=== PATIENT | female | born 1970 | race Caucasian/White ===

== ENCOUNTER 2017-02-20 23:21 | Inpatient (IN) | payer BC, OTHER ==
[~2017-02-20] VITALS: Ht 162.6 cm; Wt 68.0 kg
[2017-02-21 00:20] VITALS: BP_SYST 134
--- NOTE | 2017-02-21 00:20 | NUR ---
Patient to [facility] for evaluation. Side rails uP.
--- NOTE | 2017-02-21 00:30 | NUR ---
PT IN [facility] , C/O ABDOMINAL PAIN AND NAUSEA . DR MAYO AWARE.
[2017-02-21] MEDS ORDERED: NACL 0.9% 1,000 ML IV ONE (00:37)
[2017-02-21] MEDS ORDERED: TRAM50TA92 PO (00:44)
[2017-02-21] MEDS ORDERED: ONDANSETRON HCL 4 MG/2 ML VIAL IVP ONE ×2 (00:45→15:54)
[2017-02-21] MEDS ORDERED: KETOROLAC TROMETHAMINE 30 MG VIAL IVP ONE ×2 (00:45→15:54)
--- NOTE | 2017-02-21 01:20 | NUR ---
PT MOVED TO BED 7 .
--- NOTE | 2017-02-21 01:30 | NUR ---
ER at bedside examining patient.
[2017-02-21 01:39] LABS: BASOPHILS % (AUTO) 0.5 % (0.0-2.0); EOSINOPHILS # (AUTO) 0.1 K/uL (0.0-0.4); HEMATOCRIT 39.5 % (36-48); HEMOGLOBIN 13.2 g/dL (12.0-16.0); LYMPHOCYTES # (AUTO) 1.2 K/uL (1.0-5.5); LYMPHOCYTES % (AUTO) 21.6 % (20.5-51.5); MEAN CORPUSCULAR HEMOGLOBIN 27 pg (27-31); MEAN CORPUSCULAR HGB CONC 33 % (32-36); MEAN CORPUSCULAR VOLUME 82 fL (79.0-98.0); MONOCYTES # (AUTO) 0.3 K/uL (0.0-1.0); MONOCYTES % (AUTO) 6.1 % (1.7-9.3); NEUTROPHILS # (AUTO) 3.9 K/uL (1.8-7.7); NEUTROPHILS % (AUTO) 69.8 % (40.0-70.0); PLATELET COUNT (AUTO) 243 K/uL (130-430); RED BLOOD CELL COUNT(AUTO) 4.82 MIL/uL (4.2-6.2); WHITE BLOOD COUNT (AUTO) 5.5 K/uL (4.8-10.8)
[2017-02-21 01:48] LABS: CALCIUM 8.9 mg/dL (8.4-11.0); CREATININE 0.83 mg/dL (0.55-1.30); POTASSIUM 3.8 mmol/L (3.5-5.1)
[2017-02-21 01:54] LABS: ALBUMIN 3.6 g/dL (3.4-4.8); TOTAL BILIRUBIN 0.9 mg/dL (0.0-1.0); TOTAL PROTEIN, SERUM 7.3 g/dL (6.4-8.3)
[2017-02-21] MEDS ORDERED: MORPHINE 2 MG/ML INJ. SYRINGE IVP PRN (02:30)
--- NOTE | 2017-02-21 02:50 | NUR ---
Patient will be admitted to care of DR EARLY. Admitted to M/S unit. Will go to room 130B. Belongings list completed. Summary report printed. Report will be given at bedside.
--- NOTE | 2017-02-21 03:04 | NUR ---
ADMISSION NOTE Received patient from ER via gurney. Patient admitted with diagnosis of Abdominal pain. Patient is awake, alert, oriented X 4. Patient oriented to hospital room, call light, toileting, pain management and safety-teach back done. Patient informed that Preeti will be her nurse and that their room number is 130B. Personal belongings checked and Belongings List documented. Call light within reach.
[2017-02-21 03:07] VITALS: BP_SYST 130
--- NOTE | 2017-02-21 03:30 | NUR ---
Fever Temp 101.2. Pt declined ice packs. Will contact Dr. Naik prior to starting IV antibiotics.
[2017-02-21] MEDS: D5/0.45 NS 1,000 ML IV SCH ×3 (03:47→20:04)
[2017-02-21] MEDS ORDERED: PIPERACILLIN/TAZO 3.375/DEX-IS 50 ML IV ONE (04:00)
[2017-02-21] MEDS ORDERED: DESV100T10 PO (04:02)
[2017-02-21] MEDS ORDERED: PIPERACILLIN/TAZOBACTAM 3.375 GM/VIAL (ZOSYN) IV ONE (04:21)
--- NOTE | 2017-02-21 05:15 | NUR ---
Urine Specimen Urine specimen sent to the lab for UA and culture. Lab already notified to draw blood cultures.
[2017-02-21 06:13] LABS: BILIRUBIN,URINE NEGATIVE (NEGATIVE); CLARITY/URINE CLEAR (CLEAR); COLOR,URINE YELLOW (YELLOW); GLUCOSE,URINE NEGATIVE (NEGATIVE); KETONES,URINE NEGATIVE (NEGATIVE); LEUKOCYTE ESTERASE ,URINE NEGATIVE (NEGATIVE); NITRITE, URINE NEGATIVE (NEGATIVE); PROTEIN URINE NEGATIVE (NEGATIVE); UROBILINOGEN,URINE 0.2 (0.2-1.0)
[2017-02-21 06:18] LABS: BLOOD, URINE TRACE (NEGATIVE)
[2017-02-21 06:38] LABS: BACTERIA,URINE FEW /HPF (None Seen); MUCUS,URINE None Seen /LPF (None Seen); RBC,URINE 0-3 /HPF (0-3); WBC,URINE 0-3 /HPF (0-3)
--- NOTE | 2017-02-21 07:00 | NUR ---
Closing Note Pt is awake and resting comfortably in bed. IVF is infusing well in RAC. No c/o pain or discomfort. Will endorse to day shift nurse.
--- NOTE | 2017-02-21 07:30 | NUR ---
OPENING NOTE: PT RESTING IN BED, AAOX4. NO ACUTE SIGNS OF RESP DISTRESS, NO SOB. DENIES PAIN AT THIS TIME AND N/V. IV INTACT AND PATENT, NO REDNESS/SWELLING/PAIN. BED AT LOWEST POSITION, CALL LIGHT IN REACH.
--- NOTE | 2017-02-21 07:39 | NUR ---
CONSULTATION PAGED Reason for consultation: SYMPTOMATIC GALLSTONE Was consult called: Y Person who was notified:NATY Consulting Physician: ANGIE PAULINO Retail Representative Specialty: SURGEON Retail Representative Ordered By: MARIE RECIO
[2017-02-21 08:00] VITALS: BP_SYST 106
[2017-02-21] MEDS ORDERED: traMADol HCL HCL 50 MG TABLET (ULTRAM) PO PRN (08:00)
[2017-02-21] MEDS ORDERED: ENOXAPARIN SODIUM 40 MG/0.4 ML SYRINGE SUBCUT SCH (09:00)
--- NOTE | 2017-02-21 10:00 | NUR ---
ROUNDING: UPDATED PT ON PLAN OF CARE IN REGARDS TO PREP FOR PROCEDURE, PT VERBALIZED UNDERSTANDING. PT IS NPO AND VERBALIZED UNDERSTANDING AND HAS NOT EATEN ANYTHING. NO ACUTE SIGNS OF RESP DISTRESS, NO SOB. SKIN COLOR NORMAL FOR ETHNICITY. IV PATENT AND INTACT, NO REDNESS/PAIN. BED AT LOWEST POSITION, CALL LIGHT IN REACH. AM MEDS GIVEN PER MD ORDERS.
[2017-02-21 10:01] LABS: INR 0.9 (0.8-1.2); PROTHROMBIN TIME 10.2 SECS (9.5-12.5)
[2017-02-21 10:13] LABS: BILIRUBIN,URINE NEGATIVE (NEGATIVE); CLARITY/URINE CLEAR (CLEAR); COLOR,URINE YELLOW (YELLOW); GLUCOSE,URINE NEGATIVE (NEGATIVE); KETONES,URINE NEGATIVE (NEGATIVE); LEUKOCYTE ESTERASE ,URINE NEGATIVE (NEGATIVE); NITRITE, URINE NEGATIVE (NEGATIVE); PROTEIN URINE NEGATIVE (NEGATIVE); UROBILINOGEN,URINE 0.2 (0.2-1.0)
[2017-02-21 10:15] LABS: BLOOD, URINE TRACE (NEGATIVE)
[2017-02-21 10:21] LABS: BACTERIA,URINE FEW /HPF (None Seen); RBC,URINE 0-3 /HPF (0-3); WBC,URINE 0-3 /HPF (0-3)
[2017-02-21] MEDS: DESVENLAFAXINE ER 100 MG PO SCH (10:36)
--- NOTE | 2017-02-21 12:00 | NUR ---
ROUNDING: PT RESTING IN BED, COMFORTABLY. DENIES PAIN AT THIS TIME. NO ACUTE SIGNS OF RESP DISTRESS. UPDATED WITH TIME OF PROCEDURE AND BOTH PT AND VERBALIZED UNDERSTANDING. IV INTACT AND PATENT, NO REDNESS/PAIN. BED AT LOWEST POSITION, CALL LIGHT IN REACH.
[2017-02-21 13:19] VITALS: BP_SYST 116
[2017-02-21] MEDS: PIPERACILLIN/TAZO 3.375/DEX-IS 50 ML IV SCH ×2 (13:45→20:04)
--- NOTE | 2017-02-21 14:00 | NUR ---
ROUNDING: PT RESTING IN BED, AAOX4. NO ACUTE SIGNS OF RESP DISTRESS, SKIN COLOR NORMAL FOR ETHNICITY. DENIES PAIN AND NAUSEA AT THIS TIME. BED AT LOWEST POSITION, CALL LIGHT IN REACH. ALL NEEDS MET. CONTINUE TO MONITOR.
[2017-02-21] MEDS ORDERED: NS 1000 ML BAG IV ONE (15:54)
[2017-02-21] MEDS ORDERED: fentaNYL CITRATE/PF 100 MCG/2 ML AMP IVP ONE (15:54)
[2017-02-21] MEDS ORDERED: MIDAZOLAM HCL 5 MG/5 ML VIAL IVP ONE (15:54)
[2017-02-21] MEDS ORDERED: BUPIVACAINE /EPINEPHRINE/PF 0.25% 30 ML VIAL INJ ONE (15:54)
[2017-02-21] MEDS ORDERED: NS IRRIG SOLN 1000 ML IR ONE (15:54)
[2017-02-21] MEDS ORDERED: GLYCOPYRROLATE 0.2 MG/ML VIAL IJ ONE (15:54)
[2017-02-21] MEDS ORDERED: PROPOFOL 200MG/ 20ML VIAL (DIPRIVAN) IV ONE (15:54)
[2017-02-21] MEDS ORDERED: ROCURONIUM BROMIDE 10 MG/ML (ZEMURON) IV ONE (15:54)
[2017-02-21] MEDS ORDERED: LR 1,000 ML IV.SOLN IV ONE (15:54)
[2017-02-21] MEDS ORDERED: SEVOFLURANE 15 MIN GAS INH ONE (15:54)
--- NOTE | 2017-02-21 16:00 | NUR ---
PT LEFT TO OR: PT LEFT TO OR.
[2017-02-21] MEDS ORDERED: IOHEXOL 50 ML IV ONE (16:27)
[2017-02-21] MEDS ORDERED: LR 1,000 ML IV SCH (16:41)
[2017-02-21] MEDS ORDERED: ONDANSETRON HCL 4 MG/2 ML VIAL IVP PRN (16:45)
[2017-02-21] MEDS ORDERED: HYDROmorphone 2 MG/ML VIAL IVP PRN ×2 (16:45)
[2017-02-21] MEDS ORDERED: HYDROmorphone 1 MG INJ. 1 MG/ML AMPUL IVP PRN (16:45)
[2017-02-21 17:26] VITALS: BP_SYST 116
[2017-02-21] MEDS ORDERED: HYDROcodone/ACETAMIN 5-325 MG TAB (NORCO/ VICODIN) PO PRN ×2 (17:45)
--- NOTE | 2017-02-21 18:00 | NUR ---
ALYSON MART : AWAITING CALL BACK IN REGARDS TO POST OP MEDICATION FOR LOVENOX. Addendum: 02/21/17 at 1814 by Samra Granados RN ALYSON ATWOOD
--- NOTE | 2017-02-21 18:05 | NUR ---
MD AGEE CALLED [facility] AT [phone] SPOKE WITH EXCHANGE LISSETH HUNG LITHOSTRIPPER.
--- NOTE | 2017-02-21 18:14 | NUR ---
DR. CLARKE CALL BACK: DR. ATWOOD CALL BACK, NOTED NEW ORDERS.
[2017-02-21] MEDS ORDERED: ACETAMINOPHEN 325 MG TABLET PO PRN (18:15)
[2017-02-21] MEDS ORDERED: HYDROmorphone 1 MG INJ. 1 MG/ML AMPUL ONE (18:23)
--- NOTE | 2017-02-21 19:10 | NUR ---
PT CAME BACK FROM OR: PT CAME BACK FROM OR. PT AAOX4. WAS IN THE BATHROOM ASSISTED BY . NO ACUTE SIGNS OF RESP DISTRESS. IV INTACT. PT STATED THAT SHE IS STILL BLEEDING FROM SITE AND DOES NOT FEEL COMFORTABLE GOING HOME. ENDORSED PLAN OF CARE TO NURSES EBEN AT BEDSIDE WHILE PATIENT WAS ASSISTED BACK TO BED.
--- NOTE | 2017-02-21 19:30 | NUR ---
Opening note Report was endorsed by day nurse at bedside. Patient states that dressing is activly bleeding, assessed dressing and re enforced with gauze . Patient
[2017-02-21 20:00] VITALS: BP_SYST 131
[2017-02-21] MEDS: HYDROmorphone 1 MG INJ. 1 MG/ML AMPUL IVP PRN ×2 (20:34→23:40)
--- NOTE | 2017-02-21 20:55 | NUR ---
Paged for dressing that is saturated with blood and reinforced with gauze. Spoke with Dr. Lizarraga no orders were given will continue to monitor dressing on incisional site. Dr. Lizarraga also stated no discharge for tonight patient will remain here for observation.
--- NOTE | 2017-02-21 20:55 | NUR ---
PAGED PAGED DOCTOR MIGUEL
[2017-02-22] VITALS: BP_SYST 117
[2017-02-22] MEDS: PIPERACILLIN/TAZO 3.375/DEX-IS 50 ML IV SCH ×3 (00:40→12:24)
[2017-02-22] MEDS: HYDROmorphone 1 MG INJ. 1 MG/ML AMPUL IVP PRN ×2 (01:02→06:36)
--- NOTE | 2017-02-22 01:05 | NUR ---
Pain medication Patient requesting Pain medication medicated as ordered please see EMAR. Patient educated on safety and call ligiht usage.. Patients call light is on right side of her, bed in lowest position, bed alarm is on. Patient has spouse at bedside, SCD are in place. will continue to monitor.
--- NOTE | 2017-02-22 01:58 | NUR ---
RN ROUNDS Patient is currently resting in bed with no complaints of any pain or discomfort at this time. Spouse at bedside. Safety and fall precautions are in place. Call light to left hand. Encouraged patient and spouse to use call light for any needs. Will continue to monitor.
--- NOTE | 2017-02-22 03:55 | NUR ---
RN rounding Patient is awake and laying in bed. No complaints of pain or discomfort. Patient has bed alarm on, bed in lowest position, call light is on patients right side. Educated patient car electronics installer light and safety.
[2017-02-22 04:15] VITALS: BP_SYST 115
[2017-02-22] MEDS: D5/0.45 NS 1,000 ML IV SCH (05:22)
--- NOTE | 2017-02-22 06:30 | NUR ---
Closing note/Pain medication Patient is complains of pain 7/10 medicated as ordered. Patient assisted to bathroom. Patient is awake with no signs of distress. Patient educated on safety precautions and call light. Will endorse report to oncoming day nurse at bed side.
[2017-02-22 06:31] LABS: HEMATOCRIT 39.9 % (36-48); HEMOGLOBIN 13.1 g/dL (12.0-16.0); MEAN CORPUSCULAR HEMOGLOBIN 27 pg (27-31); MEAN CORPUSCULAR HGB CONC 33 % (32-36); MEAN CORPUSCULAR VOLUME 83 fL (79.0-98.0); PLATELET COUNT (AUTO) 256 K/uL (130-430); RED BLOOD CELL COUNT(AUTO) 4.81 MIL/uL (4.2-6.2); RED CELL DISTRIBUTION WIDTH 13.3 % (9.0-15.0)
[2017-02-22 06:36] LABS: ALBUMIN 3.6 g/dL (3.4-4.8); CREATININE 0.97 mg/dL (0.55-1.30); PHOSPHORUS 4.6 mg/dL (2.7-4.5); POTASSIUM 3.8 mmol/L (3.5-5.1); TOTAL BILIRUBIN 0.5 mg/dL (0.0-1.0); TOTAL PROTEIN, SERUM 7.7 g/dL (6.4-8.3)
[2017-02-22 06:44] LABS: WHITE BLOOD COUNT (AUTO) 11.4 K/uL (4.8-10.8)
[2017-02-22 08:00] VITALS: BP_SYST 118
--- NOTE | 2017-02-22 08:00 | NUR ---
RN OPENING NOTE PATIENT LYING ON BED ALERT ORIENTED AMBULATES. PATIENT VITAL SIGNS ARE STABLE. PATIENT WILL BE GIVEN HER MEDICATION BY 0900
[2017-02-22 08:36] LABS: ATYPICAL LYMPHOCYTES % 0 % (0-0); BAND % (MANUAL) 6 % (0-6); BASOPHILS % (MANUAL) 0 % (0-2); EOSINOPHILS % (MANUAL) 0 % (0-7); LYMPHOCYTES % (MANUAL) 8 % (20-46); MONOCYTES % (MANUAL) 3 % (0-11)
[2017-02-22] MEDS ORDERED: ENOXAPARIN SODIUM 40 MG/0.4 ML SYRINGE SUBCUT SCH (09:00)
--- NOTE | 2017-02-22 09:08 | NUR ---
Nutrition Update Ion Scale 18 noted. Pt admitted for abd pain. Diet: regular and clear liquid (2 active, separate diet orders) BMI: 25.7 kg/m2 RD to follow per nutrition care standards.
--- NOTE | 2017-02-22 10:00 | NUR ---
RN ROUNDS 'S BY THE BED SIDE, PATIENT DENIES PAIN OR DISCOMFORT WILL FOLLOW UP
[2017-02-22] MEDS: DESVENLAFAXINE ER 100 MG PO SCH (10:16)
--- NOTE | 2017-02-22 12:00 | NUR ---
RN ROUNDS PATIENT WAS WALKING AROUND THE FLOOR WITH AND NURSE WILL FOLLOW UP ON THE D/C ORDERS
[2017-02-22 12:50] VITALS: BP_SYST 116
--- NOTE | 2017-02-22 14:00 | NUR ---
RN ROUNDS PATIENT WAS GIVEN HER DISCHARGE INSTRUCTIONS. AND TEACHING , AWAITING FOR THE TO COME TO PICK HER UP
[2017-02-22 14:09] VITALS: BP_SYST 116
[2017-02-22] MEDS ORDERED: CIPR-211 PO (14:27)
[2017-02-22] MEDS ORDERED: HYDR-1189 PO ×2 (14:28)
--- NOTE | 2017-02-22 15:00 | NUR ---
RN ROUNDS PATIENT WAS DISCHARGED HOME WITH HER , WAS SENT TO THE PARKING LOT OF THE HOSPITAL BY WHEEL CHAIR
== END 2017-02-22 15:05 | disposition home or self-care (01) | DRG 418 ==
LOC: SED 23:21 → SMU 02-21 02:28
PROVIDERS: ADMIT Internal Medicine; ATTEND Internal Medicine
PROC: BF121ZZ Fluoroscopy of Gallbladder using Low Osmolar Contrast (ICD-10-PCS; 2017-02-21)
PROC: 0FT44ZZ Resection of Gallbladder, Percutaneous Endoscopic Approach (ICD-10-PCS; principal; 2017-02-21 15:15)
DX: K80.12 Calculus of gallbladder with acute and chronic cholecystitis without obstruction (principal); N39.0 Urinary tract infection, site not specified; K75.9 Inflammatory liver disease, unspecified; F32.9 Major depressive disorder, single episode, unspecified; Z79.899 Other long term (current) drug therapy
CPT/HCPCS: 36415; 71010; 76000; 76700-TC; 80053; 81000-TC; 81025; 83690-TC; 83735-TC; 84100-TC; 84703; 85007; 85025; 85027; 85610-TC; 87040-TC; 87081; 87086; 88304; 93005; 94010; 96361; 96374; 96375; 99285; J1170; J1650; J1885; J2250; J2405; J2543; J2704; J3010; J3490; J7030; J7120; Q9967

== ENCOUNTER 2019-01-12 21:03 | Emergency (ER) | payer BC, OTHER ==
[~2019-01-12] VITALS: Ht 162.6 cm; Wt 74.8 kg
[~2019-01-12 21:03] MED LIST: CIPR-211 PO; DESV100T10 PO; HYDR-1189 PO
[2019-01-12 21:15] VITALS: BP_SYST 10; BP_SYST 108
--- NOTE | 2019-01-12 21:20 | NUR ---
Patient triaged and placed in waiting room. VSS and patient appears in no acute distress at this time. Accompanied by self, awaiting available bed, and MD notified of need for MSE.
--- NOTE | 2019-01-12 21:51 | NUR ---
Pt wheeled to bed 1 for evaluation
--- NOTE | 2019-01-12 22:00 | NUR ---
Pt came to the ED for L hamstrign pain. Reports she was playing softball, first base and she was taking a throw and tried to stretch but felt her legs split. Reported she felt a pop in her L hamstring and sudden pain. Denies taking pain medications prior to coming into ED. Denies n/v/d or fever. No other complaints/injuries noted. Will cont. to monitor. Addendum: 01/12/19 at 2318 by [email or web address] Pt came to the ED for L hamstring pain. Reports she was playing softball, first base and she was taking a throw and tried to stretch but felt her legs split. Reported she felt a pop in her L hamstring and sudden pain. Denies taking pain medications prior to coming into ED. Denies n/v/d or fever. No other complaints/injuries noted. Will cont. to monitor.
--- NOTE | 2019-01-12 22:15 | NUR ---
ER at bedside examining patient.
--- NOTE | 2019-01-12 22:30 | NUR ---
Pt states that she is on menopause and has not had her period since she was 41. ER made aware.
[2019-01-12] MEDS ORDERED: KETOROLAC TROMETHAMINE 60 MG/2 ML VIAL IM ONE (22:45)
--- NOTE | 2019-01-12 22:45 | NUR ---
Provided ice packs to pt.
[2019-01-12 23:36] VITALS: BP_SYST 108
--- NOTE | 2019-01-12 23:36 | NUR ---
Patient given written and verbal discharge instructions and verbalizes understanding. ER MD Dr. Rogers discussed with patient the results and treatment provided. Patient in stable condition. ID arm band removed. Rx of motrin given. Patient educated on pain management and to follow up with PMD. Pain Scale 0/10. Opportunity for questions provided and answered. Medication side effect fact sheet provided.
== END 2019-01-12 23:36 | disposition home or self-care (01) ==
LOC: SED 21:03
DX: S76.312A Strain of muscle, fascia and tendon of the posterior muscle group at thigh level, left thigh, initial encounter (principal); Z79.899 Other long term (current) drug therapy; X50.9XXA Other and unspecified overexertion or strenuous movements or postures, initial encounter; Y93.64 Activity, baseball; Y92.89 Other specified places as the place of occurrence of the external cause; Y99.8 Other external cause status
CPT/HCPCS: 73552; 96372; 99283; J1885